=== PATIENT | male | born 1960 | race African-American/Black ===

== ENCOUNTER 2018-04-13 06:16 | Inpatient (IN) ==
--- NOTE | 2018-04-12 21:37 | Discharge Summary ---
<Len Carbajal - Last Filed: 04/13/18 07:55> Orders not resulted at time of discharge: Pending orders 04/13/18 00:01 XR hip complete RT [XR] Routine H/H [Hemoglobin and Hematocrit] [HEME] Routine Date of Encounter: 04/13/18 - Discharge Diagnosis (1) Arthritis of right hip Priority: Primary Status: Chronic (2) Status post total hip replacement, right Priority: Primary Status: Acute - Hospital Course Hospital course: Mr. Anthony is a 57 year old male - Time Spent with Patient Total time spent providing and/or coordinating discharge services: - Discharge Medications Home Medications: Aspirin Enteric Coated [Aspirin EC] 325 mg PO BID #20 tablet. 04/12/18 [Rx] OxyCODONE Immed Rel [Roxicodone 5 MG] 5 mg PO Q6HR PRN 7 Days #28 tablet [Rx] Allergies/Adverse Reactions: 3 Allergy/AdvReac Type Severity Reaction Status Date / Time No Known Allergies Allergy Verified 04/13/18 06:57 Primary care physician: PCP NONE - Patient Status Disposition: Home Health Service Condition: Good - Discharge Instructions Instructions: Total Hip Replacement (DC), Precautions after Total Joint Replacement Surgery (DC) Follow Up With: NONE,PCP [Primary Care Provider] - Alireza Marcelo [Family Provider] - <Rhonda Cardenas - Last Filed: 04/14/18 16:27> Orders not resulted at time of discharge: Results finalized and reviewed All Lab Results (24 Hours) 04/14/18 04/14/18 Range/Units 00:11 00:11 Hgb 12.7 L (12.9-16.9) g/dL Hct 38.2 (37.5-50.1) % Sodium 135 L (136-145) mEq/L Potassium 4.1 (3.5-5.1) mEq/L Chloride 100 (98-107) mEq/L Carbon Dioxide 28 (23-29) mEq/L BUN 11 (6-20) mg/dL Creatinine 1.15 (0.70-1.30) mg/dL Est GFR ( Amer) > 60 (> 60) Est GFR (Non-Af Amer) > 60 (> 60) BUN/Creatinine Ratio 10 (6-26) Glucose 120 H (70-105) mg/dL Calculated Osmolality 281 (280-300) Calcium 8.8 (8.6-10.3) mg/dL Date of Encounter: 04/14/18 Time of Encounter: 16:24 - Discharge Diagnosis (1) Arthritis of right hip Priority: Primary Status: Chronic Comments: Opsite dressing, leave intact until first post-operative visit. If dressing becomes >50% saturated, contact office, remove dressing and place appropriate dressing in its place. Do not allow for dressing to get wet. Zipline in place, plan to remove at post-operative day #14-16. Total Joint Precautions x 6 weeks Apply cold therapy wrap 3-6x/day for 20 minutes at a time. Encourage ambulation throughout the day Use Incentive spirometer 10x/hour. Elevate affected extremity above heart as tolerated. Brace: Wear hip abductor brace at night x 6 weeks.~ (2) Status post total hip replacement, right Priority: Primary Status: Acute - Hospital Course Hospital course: Mr. Anthony is a 57 year old male, POD#1 s/p Right THR. Patient doing well. Patient had uneventful postoperative course. Stable for discharge. Patient seen at bedside, without complaints. A&O x 3 Afebrile, vital signs stable. Labs reviewed. H/H - stable, asymptomatic Pain control: adequate Participating in PT. All questions and concerns addressed. Educated on use of incentive spirometer. Encouraged ambulation and proper hydration. Patient educated on post-operative restrictions and post-operative care. Assessment and plan: Continue with postoperative care Discharge plan: Home with , continuity placed, discharge today. - Time Spent with Patient Total time spent providing and/or coordinating discharge services: Less than 30 minutes Date of admission: 04/13/18 Primary care physician: PCP NONE Discharging clinician: Rhonda Cardenas - Patient Status Functional capacity at discharge: uses cane/walker Overall status at discharge: patient is back to baseline - Diet and Activity Activity: as per physical therapy Diet: advance to your usual diet
[2018-04-13] MEDS ORDERED: CeFAZolin Syr 2,000MG/20 ML 2,000 MG/20 ML SYRINGE IVPB ONE (06:35)
--- NOTE | 2018-04-13 06:36 | History & Physical Report ---
Date of Encounter: 04/13/18 Time of Encounter: 06:36 24 Hour HP Update - Instructions Instructions: If the History and Physical is less than 30 days old and was completed prior to A.M. admission and or procedure and has NOT been updated on calendar day of procedure please complete this update prior to performing procedure. - Update Patient reports changes in Medical Condition: No Changes in examination, assessment, or condition: No Changes in Medication: No Preop tests/diagnostics Reviewed: Yes Surgery Remains Indicated: Yes Consent for Planned Operative Procedure(s) Verified: Yes - Pre-Operative Checklist Preoperative Checklist Indicated: No Prophylactic Antibiotic Ordered: Yes Is VTE Prophylaxis Indicated?: Yes
[2018-04-13] MEDS ORDERED: Ringers Solution, Lactated 1,000 ML IVC SCH (06:45)
[2018-04-13] MEDS ORDERED: ROPIVACAINE HCL/PF 0.5% 30 ML VIAL ONE (07:47)
[2018-04-13] MEDS ORDERED: *HR* FentaNYL (PF) 100 MCG/2 ML VIAL ONE (07:50)
[2018-04-13] MEDS ORDERED: *HR* Midazolam HCl 2 MG/2 ML VIAL ONE (07:50)
[2018-04-13] MEDS ORDERED: *HR* Propofol 200 MG/20 ML VIAL IVP ONE (07:50)
[2018-04-13] MEDS ORDERED: Propofol 500 MG/50 ML INFUS..BTL ONE ×2 (07:50→09:06)
[2018-04-13] MEDS ORDERED: Ondansetron 4 MG/2 ML VIAL ONE (07:51)
[2018-04-13] MEDS ORDERED: Lidocaine -MPF 2% 2 ML VIAL ONE (07:51)
[2018-04-13] MEDS ORDERED: *HR* Succinylcholine 200 MG/10 ML VIAL IVP ONE (07:51)
[2018-04-13] MEDS ORDERED: Ethanol\\Acetic Acid\\Na Ace\\Ben 1,000 ML IRRIG.SOLN IR ONE (07:55)
--- NOTE | 2018-04-13 08:00 | Anesthesia Evaluation PreOp ---
Date of Encounter: 04/13/18 Time of Encounter: 07:48 - Past History Planned Operation: R-Raymundo Hip Cardiac History: Denies any Significant Hx Pulmonary History: Snore [employer] History: Denies Any Significant HX Other Medical History: Denies Any Significant HX Anesthesia History: No Prior Anesthetic Complications, Past Anesthesia (Knee scope) Alcohol Use: occasionally Drug use: none Medications and Allergies Aspirin Enteric Coated [Aspirin EC] 325 mg PO BID #20 tablet. 04/12/18 [Rx] OxyCODONE Immed Rel [Roxicodone 5 MG] 5 mg PO Q6HR PRN 7 Days #28 tablet [Rx] 3 Allergy/AdvReac Type Severity Reaction Status Date / Time No Known Allergies Allergy Verified 04/13/18 06:57 - Meds/Allergy Pre-op Review Medications Reviewed: Yes Allergies Reviewed: Yes Beta Blockers on Current Med List: No Anesthesia Results - Labs Laboratory Tests 04/08/18 04/08/18 04/08/18 13:50 13:50 13:50 WBC 7.0 Hgb 13.6 Hct 40.7 Plt Count 277 PT 10.9 INR 1.0 APTT 35.4 Sodium 139 Potassium 4.3 Chloride 104 Carbon Dioxide 28 BUN 13 Creatinine 1.18 Est GFR ( Amer) > 60 Est GFR (Non-Af Amer) > 60 BUN/Creatinine Ratio 11 - Imaging Additional studies: Limited axial CT images of the lower extremity joints performed for preoperative planning purposes only as per [facility] protocol. Findings demonstrate moderate right hip, mild left hip and moderate tricompartmental left knee osteoarthritis as described above. Moderate left knee suprapatellar joint effusion is also noted. Incidentally noted periumbilical fat containing hernia without acute hernia complication. D/ : / 04/08/2018 13:11:35 Uriah Nieto MD / s Anesthesia Exam O2 Sat Height 1.83 m Height 1.83 m Weight 88.451 kg Weight 88.451 kg O2 Sat by Pulse Oximetry 95 Vital Signs Temp Pulse Resp BP Pulse Ox 98.4 F 76 18 132/87 95 04/13/18 06:40 04/13/18 06:40 04/13/18 06:40 04/13/18 06:40 04/13/18 06:40 Height: 6'1 Weight: 195# NPO (# of Hours): MNOc - HEENT Pupil (Motor): Pupils equal, EOMI Mallampati: II Teeth: Normal Oral Opening: Greater than 3 - [employer] LOC: Oriented [employer] Motor: Normal RUE, Normal LUE, Normal RLE, Normal LLE, Normal Face [employer] Sensory: Normal: RUE, LUE, RLE, LLE, Face - Cardiac Rhythm: Regular Murmur: None - Pulmonary Breath Sounds: bilateral Clear Respiratory Effort: Symmetrical Anesthesia Assess/Plan ASA Score: 2 Modified [place] Scale for Level of Consciousness: Cooperative, oriented, and tranquil Anesthetic Plan: General, Regional Monitoring Plan: Standard Monitors Recovery Plan: PACU Anes Supervising Prov Stmt: Pt seen/evaluated, R&B discussed, questions answered and consent obtained. Troy Martinez MD
[2018-04-13] MEDS ORDERED: *HR* Morphine Sulfate/PF 10 MG/10 ML AMPUL ONE (08:05)
[2018-04-13] MEDS ORDERED: Bupivacaine/PF 0.75% in Dex 2 ML AMPUL INFILT ONE (08:08)
[2018-04-13] MEDS ORDERED: Lidocaine -MPF 1% 5 ML AMPUL ONE (08:09)
[2018-04-13] MEDS ORDERED: *HR* EPINEPHrine 1 MG/ML AMPUL ONE (08:17)
[2018-04-13] MEDS ORDERED: *HR* PHENYLEPHRINE 1,000 MCG/10 ML SYRINGE IVP ONE (08:33)
--- NOTE | 2018-04-13 08:50 | Anesthesia Procedures ---
Date of Encounter: 04/13/18 Time of Encounter: 08:15 Procedures: Anesthesia - Epidural/Spinal Patient examined: Yes Consent Obtained: Yes Supplemental Oxygen: None/Room Air Sedation: Versed (mg): 2 Site Prep: Aseptic Technique, Sterile prep and drape, Povidone-Iodine 1% Patient position: upright Local Anesthetic: Lidocaine 1% Amount of Local Anesthetic used: 2 Loading Dose: Fentanyl (mcg): 25 Loading Dose: Other: 200mcg of Duramorph Blood: No CSF: Yes Paresthesia: No Spinal Needle Gauge: 22 Spinal Dose: 0.75% Bupivacaine with dextrose 1.6mL Procedure: Spinal completed. Sterile technique maintained throughout. Pt tolerated without difficulty. VSS throughout. Vitals + FHT's: Refer to Anesthesia Record for details. VSS throughout procedure.
[2018-04-13] MEDS ORDERED: Naloxone 0.4 MG/ML INJ IVP PRN ×2 (08:54→10:36)
[2018-04-13] MEDS ORDERED: *HR* HYDROmorphone (PF) 1 MG/ML SYRINGE IVP PRN ×2 (08:54→10:35)
--- NOTE | 2018-04-13 09:15 | Orthopedic Operative Note ---
Date of procedure: 04/13/18 Pre-op diagnosis: Right hip arthritis Post-op diagnosis: same Procedure: Procedure: Right Total Hip Replacment robotic-assisted Estimated blood loss: 200 cc Hardware: Metal and polyethylene replacement. Elo DM Cup: 60 cup Femoral size 11 stem Head: 4 head with Lindsay Procedural Notes: Grade 4 arthritic changes femoral head acetabular socket, procedure performed with robotic assistance. 5 mm short operative versus nonoperative leg as measured by preoperative CT Operative procedure: The patient was brought to the operating room and placed on the operating room table. After general anesthesia was administered the patient was placed in the lateral decubitus position with the operative leg up. All pressure points were padded appropriately and the head was stabilized in the neutral position. The operative extremity was prepped and draped in the sterile surgical fashion patient received IV antibiotic prior to skin incision. 3 Steinmann pins were placed in the iliac crest 3 cm proximal to the anterior superior iliac spine this was for the robotic-assisted sensor. This was done through a small 2 cm incision. A standard posterior approach is made to the operative hip, the incision was made through the skin and subcutaneous tissue hemostasis was obtained with Bovie cautery. Using careful sharp dissection the fascia was identified and incised exposing the external rotators. The femoral checkpoint was placed leg length was measured at this time utilizing robotic assistance. The external rotators were released off the greater trochanter and tagged with # 2 FiberWire suture. The capsule was T'd open and the hip was brought into internal rotation. Patient noted to have grade 4 arthritic changes femoral head. The femoral neck cut was made at the appropriate level roughly 14 mm proximal to the lesser trochanter aced on preoperative templating. An anterior capsulotomy was performed for the anterior retractor. Soft tissues removed from the acetabulum. Patient noted to have grade 4 arthritic changes acetabulum. The acetabulum checkpoint was placed confirmed. The acetabulum was then mapped with robotic assistance. Based on the preoperative plan the acetabulum was reamed in one step with a 59 reamer. The 60 acetabulum was impacted with robotic assistance and 41 degrees of abduction and 20 degrees of anteversion. The hip was brought back in to internal rotation and prepared with the crepe box tender followed by the canal finder followed by the reaming process to a size 11 /12 broaching process in 20 degrees anteversion. It was broached up to the appropriate size 11. Trial reduction revealed leg lengths close to normal. The femoral implant was impacted in place in 20 degrees of anteversion. Trial reduction found the hip to be stable with 4 head and Lindsay. The trials were removed and the real implants were impacted in place. The hip was reduced, patient had robotic confirmed leg length of 5 mm longer than the contralateral side. The hip had excellent stability with forward flexion to 90 degrees adduction of 30 degrees and internal rotation of 60 degrees. The hip had no shuck. The hips after 2 minutes with a antibacterial solution. It was irrigated out with 2 L of pulse irrigation. The checkpoints were removed, Steinmann pins were removed. The hip was closed by the PA. The deep tissue was irrigated and closed deep with #1 PDS suture superficially with 0 PDS suture and skin was closed with Dermabond and zip tie. The patient was placed in a sterile dressing and abduction pillow. The patient was extubated and transferred to the recovery room in stable condition. Anesthesia: GETA Surgeon: Len Carbajal Was there an assistant quality manager present: Yes Director Game: Rhonda Cardenas Estimated blood loss (cc): 200 Condition: stable Disposition: PACU
[2018-04-13 10:16] LABS: Hematocrit 37.9 % (37.5-50.1); Hemoglobin 12.7 g/dL (12.9-16.9)
[2018-04-13] MEDS ORDERED: Ibuprofen 400 MG TABLET PO PRN (10:35)
[2018-04-13] MEDS ORDERED: Ondansetron 4 MG/2 ML VIAL IVP PRN ×2 (10:35→10:36)
[2018-04-13] MEDS ORDERED: *HR* Morphine 2 MG/ML SYRINGE IVP PRN (10:35)
--- NOTE | 2018-04-13 10:35 | Anesthesia Evaluation Post Op ---
Date of Encounter: 04/13/18 Time of Encounter: 10:34 - Vital Signs Vital Signs: Vital Signs/O2 Sat/Glucose, Most Current Temp Pulse Resp BP Pulse Ox 04/13/18 10:15 97.9 F 68 18 94/64 97 04/13/18 10:05 97.9 F 66 18 94/64 95 04/13/18 09:55 61 18 100/66 98 04/13/18 09:45 76 18 91/64 97 04/13/18 09:35 98.3 F 79 20 91/60 94 04/13/18 06:40 98.4 F 76 18 132/87 95 - Lungs Lungs: Clear Ascult./Percussion - Airway Airway: Non-obstructed - Cardiovascular Regular Rate - Mental Status Mental Status: Alert & Oriented, Answers Appropriately - Pain Pain Scale: 0 Pain Scale used: Numeric (1 - 10) - Nausea Vomiting Nausea Vomiting: Not Present - Hydration Hydration: Tolerates oral liquids, Has not voided - Discharge PostOp Status: Transfer Patient to floor Anes Supervising Prov Stmt: PT seen/evaluated, VSS And pt has met criteria for discharge to floor. - MD Michelle
[2018-04-13] MEDS ORDERED: *HR* OxyCODONE/APAP 5/325 TABLET PO PRN (10:36)
[2018-04-13] MEDS ORDERED: Sennosides 8.6 MG TABLET PO PRN (10:36)
[2018-04-13] MEDS ORDERED: Temazepam 15 MG CAPSULE PO PRN (10:36)
[2018-04-13] MEDS ORDERED: traMADol 50 MG TABLET PO PRN (10:36)
[2018-04-13] MEDS ORDERED: MOM Conc 10 ML UD.LIQ PO PRN (10:36)
[2018-04-13] MEDS: Ascorbic Acid 500 MG TABLET PO SCH ×2 (11:31→16:02)
[2018-04-13] MEDS: Multivit/Ca/Min/Fe/FA 1 TAB TABLET PO SCH (11:31)
[2018-04-13] MEDS: *HR* OxyCODONE Immed Rel 5 MG TABLET PO PRN (13:41)
[2018-04-13] MEDS: *HR* Enoxaparin 30 MG/0.3 ML SYRINGE SQ SCH (17:59)
[2018-04-13] MEDS ORDERED: *HR* Enoxaparin 30 MG/0.3 ML SYRINGE SQ SCH (18:00)
[2018-04-13] MEDS: Ringers Solution, Lactated 1,000 ML IVC SCH (23:27)
[2018-04-14 00:55] LABS: Hematocrit 38.2 % (37.5-50.1); Hemoglobin 12.7 g/dL (12.9-16.9)
[2018-04-14 01:18] LABS: BUN/Creatinine Ratio 10 (6-26); Blood Urea Nitrogen 11 mg/dL (6-20); Calcium 8.8 mg/dL (8.6-10.3); Carbon Dioxide 28 mEq/L (23-29); Chloride 100 mEq/L (98-107); Glucose 120 mg/dL (70-105); Osmolality,Calculated 281 (280-300); Potassium 4.1 mEq/L (3.5-5.1); Sodium 135 mEq/L (136-145); eGFR For Non-African Americans > 60 (> 60)
[2018-04-14] MEDS: *HR* OxyCODONE Immed Rel 5 MG TABLET PO PRN ×3 (01:44→16:41)
[2018-04-14] MEDS: *HR* OxyCODONE/APAP 5/325 TABLET PO PRN ×2 (03:36→12:05)
[2018-04-14] MEDS: *HR* Enoxaparin 30 MG/0.3 ML SYRINGE SQ SCH (05:17)
--- NOTE | 2018-04-14 07:54 | Orthopedics Progress Note ---
Date of Encounter: 04/14/18 Time of Encounter: 07:54 - Assessment and Plan (1) Arthritis of right hip Current Visit: No Status: Chronic (2) Status post total hip replacement, right Current Visit: No Status: Acute Subjective Interval history: Patient was seen this morning doing well without complaints. Afebrile vital signs stable. Operative extremity: Neurovascularly intact Dressing clean dry and intact Calves nontender Assessment and plan: Continue with postoperative care Discharged today Objective Vital signs: Vital Signs Temp Pulse Resp BP Pulse Ox 04/14/18 07:11 99.0 F 108 14 109/72 93 04/14/18 03:24 97.9 F 118 18 104/67 94 04/14/18 00:07 98.3 F 106 18 119/77 95 04/13/18 20:15 97 04/13/18 19:43 98.1 F 116 18 120/83 97 04/13/18 17:10 97.6 F 86 16 131/83 100 04/13/18 13:39 97.6 F 90 18 122/81 97 04/13/18 12:28 97.4 F L 67 15 127/83 98 04/13/18 11:28 97.4 F L 67 17 109/72 98 04/13/18 10:58 97.7 F 58 16 110/73 98 04/13/18 10:22 97.4 F L 72 16 98/62 98 04/13/18 10:15 97.9 F 68 18 94/64 97 04/13/18 10:05 97.9 F 66 18 94/64 95 04/13/18 09:55 61 18 100/66 98 04/13/18 09:45 76 18 91/64 97 04/13/18 09:35 98.3 F 79 20 91/60 94 Intake and Output 04/13/18 04/13/18 04/14/18 15:59 23:59 07:59 Intake Total 20 / 20 200 / 200 Output Total 600 / 600 1100 / 1100 Balance -580 / -580 200 / 200 -1100 / -1100 Intake: IV Fluids 20 / 20 200 / 200 Ancef Syringe 2,000 MG/20 ML 2, 20 / 20 000 mg In 20 ml @ 200 mls/hr IVPB PREOP ONE Rx#:[id number] Ancef 2,000 MG In 0.9 % Sodium 200 / 200 Chloride 100 ML @ 200 mls/hr IVPB Q8HR [facility] Rx#:[id number] Output: Emesis 400 / 400 Estimated Blood Loss 200 / 200 Catheter 1100 / 1100 Other: Weight 99.4 kg 99.4 kg Patient Weight 04/14/18 23:59 Weight 99.4 kg - Labs CBC & BMP: 04/14/18 00:11 04/14/18 00:11 Labs: Abnormal lab results Hgb 12.7 g/dL (12.9-16.9) L 04/14/18 00:11 Sodium 135 mEq/L (136-145) L 04/14/18 00:11 Glucose 120 mg/dL (70-105) H 04/14/18 00:11 - VTE Documentation of Mechanical Device: Venous foot pump, device Consult Discharge Plan - Plan Referrals: NONE,PCP [Primary Care Provider] - Alireza Marcelo [Family Provider] -
[2018-04-14] MEDS: Ringers Solution, Lactated 1,000 ML IVC SCH (08:00)
[2018-04-14] MEDS: Ascorbic Acid 500 MG TABLET PO SCH (08:34)
[2018-04-14] MEDS: Multivit/Ca/Min/Fe/FA 1 TAB TABLET PO SCH (08:35)
--- NOTE | 2018-04-14 13:24 | Event Note ---
Date of Encounter: 04/14/18
--- NOTE | 2018-04-14 16:28 | Physician Discharge Referral ---
Home Health/Hosp Referral Info Transfer to: Home Health Attending Provider: Provider in Charge Post Discharge: PCP - Diagnosis (1) Arthritis of right hip Priority: Primary Status: Chronic (2) Status post total hip replacement, right Priority: Primary Status: Acute - Respiratory Orders None Smoking Cessation: Smoking cessation has been advised. For more information, call the [place] Tobacco Quit Line at 6-072-BCWZ-NOW. - Diet/Nutrition Diet/Nutrition Orders: Regular - Activity Activity Orders: Up ad fabrice, Ambulate, Walker - Services Needed Following services are medically necessary services: Nursing, Home Health Aide, Physical Therapy, Occupational Therapy Home Care Orders: Opsite dressing, leave intact until first post-operative visit. If dressing becomes >50% saturated, contact office, remove dressing and place appropriate dressing in its place. Do not allow for dressing to get wet. Zipline/Karon in place, plan to remove at post-operative day #14-16. Total Joint Precautions x 6 weeks Apply cold therapy wrap 3-6x/day for 20 minutes at a time. Encourage ambulation throughout the day Use Incentive spirometer 10x/hour. Elevate affected extremity above heart as tolerated. Brace: Wear hip abductor brace at night x 6 weeks. - Transfer Medications Home Medications: Aspirin Enteric Coated [Aspirin EC] 325 mg PO BID #20 tablet. 04/12/18 [Rx] OxyCODONE Immed Rel [Roxicodone 5 MG] 5 mg PO Q6HR PRN 7 Days #28 tablet [Rx] Allergies/Adverse Reactions: 3 Allergy/AdvReac Type Severity Reaction Status Date / Time No Known Allergies Allergy Verified 04/13/18 06:57 Certification: Further, I certify that my clinical findings support that this patient is homebound (i.e. absences from home require considerable and taxing effort and are for medical reasons or tenriism services or infrequently or short duration when for other reasons) because: Homebound Reason: Post-surgery restriction and or conditions limit ability to leave home Attestation: My signature below is to certify that this patient is under my care and that I, or nurse practitioner, or a physician's bankruptcy assistant working with me, has a face-to -face encounter with this patient.
[2018-04-14 16:29] VITALS: BP 136/84
== END 2018-04-14 17:23 | disposition home health service (06) | DRG 470 ==
LOC: SAMDAY 06:16 → 3NENU 10:34
PROVIDERS: ADMIT Orthopaedic Surgery; ATTEND Orthopaedic Surgery